=== PATIENT | female | born 1965 | race Caucasian/White ===

== ENCOUNTER → 2017-04-02 | Outpatient (CLI) | payer MEDICARE, BC | LOC: LAB 16:24 | DX: E55.9 Vitamin D deficiency, unspecified (principal) | CPT/HCPCS: 36415; 82310; 84075 ==

== ENCOUNTER → 2017-04-17 | Outpatient (CLI) | payer MEDICARE, BC | LOC: KOH-I 04-15 13:00 | DX: M84.475A Pathological fracture, left foot, initial encounter for fracture (principal); M81.0 Age-related osteoporosis without current pathological fracture; R60.0 Localized edema; M72.2 Plantar fascial fibromatosis | CPT/HCPCS: 73718; 77080 ==

== ENCOUNTER 2021-01-28 22:19 | Inpatient (IN) | payer OTHER ==
[~2021-01-28] VITALS: Ht 162.6 cm; Wt 95.7 kg
[~2021-01-28 22:19] MED LIST: ADIPEX-P37.5 MG PO; ASPIRIN CHEWABL81 MG PO; CYCLOBENZAPRINE5 MG PO; IBUPROFEN800 MG PO; NEURONTIN 300300 MG PO; NORCO 10-325 T1 EACH PO; PROTONIX40 MG PO; TOPROL XL50 MG PO
[2021-01-29] MEDS ORDERED: VIBRAMYCIN100 MG PO (01:40)
[2021-01-29 02:30] LABS: HEMOGLOBIN 15.1 gm/dl (12.3-15.3); RED BLOOD COUNT 5.24 M/UL (4.00-5.10); WHITE BLOOD COUNT 12.2 K/UL (4.5-11.0)
[2021-01-29 02:49] LABS: BUN/CREATININE RATIO 15 (0-10)
[2021-01-29] MEDS ORDERED: K-DUR TAB 20 M20 MEQ PO (03:51)
[2021-01-29] MEDS ORDERED: LEVOFLOXACIN750 MG PO (03:51)
[2021-01-29] MEDS ORDERED: LASIX20 MG PO (09:00)
[2021-01-29] MEDS ORDERED: ZAROXOLYN/DIULO5 MG PO (10:05)
[2021-01-29] MEDS ORDERED: IBUPROFEN800 MG PO (10:06)
[2021-01-30 02:58] LABS: HEMOGLOBIN 13.8 gm/dl (12.3-15.3); RED BLOOD COUNT 4.74 M/UL (4.00-5.10); WHITE BLOOD COUNT 10.2 K/UL (4.5-11.0)
[2021-01-30] MEDS ORDERED: LEVOFLOXACIN500 MG PO (14:10)
[2021-01-30] MEDS ORDERED: FLUCONAZOLE50 MG PO (14:10)
== END 2021-01-30 16:31 | disposition home or self-care (01) | DRG 193 ==
LOC: ER1 22:19 → CDU 01-29 04:40 → MED SURG 4 01-29 04:40
PROVIDERS: Emergency Medicine; Internal Medicine; ADMIT Family Medicine
DX: J18.9 Pneumonia, unspecified organism (principal); J96.01 Acute respiratory failure with hypoxia; E87.1 Hypo-osmolality and hyponatremia; Z20.822 Contact with and (suspected) exposure to COVID-19; M51.36 Other intervertebral disc degeneration, lumbar region; K21.9 Gastro-esophageal reflux disease without esophagitis; E87.6 Hypokalemia; E86.0 Dehydration; M79.605 Pain in left leg; M79.604 Pain in right leg; D72.829 Elevated white blood cell count, unspecified; I95.9 Hypotension, unspecified; Z88.0 Allergy status to penicillin; Z90.49 Acquired absence of other specified parts of digestive tract; Z90.710 Acquired absence of both cervix and uterus; Z83.3 Family history of diabetes mellitus; Z82.5 Family history of asthma and other chronic lower respiratory diseases; Z82.49 Family history of ischemic heart disease and other diseases of the circulatory system; Z88.2 Allergy status to sulfonamides
CPT/HCPCS: 0240U; 36415; 36600; 71045; 71275; 80048; 80053; 82550; 82553; 82803; 83874; 83880; 84484; 85025; 87081; 87880; 99285; J1650; J1956; J3480; Q9967

== ENCOUNTER → 2021-07-25 | Outpatient (CLI) | payer OTHER ==
[~2021-07-25] MED LIST changes: +FLUCONAZOLE50 MG PO; +K-DUR TAB 20 M20 MEQ PO; +LASIX20 MG PO; +LEVOFLOXACIN500 MG PO; +LEVOFLOXACIN750 MG PO; +VIBRAMYCIN100 MG PO; +ZAROXOLYN/DIULO5 MG PO
== END ==
LOC: KOH-I 14:18
DX: M25.571 Pain in right ankle and joints of right foot (principal); M25.572 Pain in left ankle and joints of left foot
CPT/HCPCS: 73610